=== PATIENT | female | born 1980 | race Hispanic/Latino ===

== ENCOUNTER 2022-07-22 11:22 | Emergency (ER) | payer SELFPAY ==
[2022-07-22 12:47] LABS: SARS-CoV-2 NAA Rapid Test Not Detected (NotDetected)
== END 2022-07-22 13:35 | disposition home or self-care (01) ==
LOC: CSHERS 11:22
DX: J11.1 Influenza due to unidentified influenza virus with other respiratory manifestations (principal); Z20.822 Contact with and (suspected) exposure to COVID-19
CPT/HCPCS: 71045

== ENCOUNTER 2022-09-26 17:15 | Emergency (ER) | payer SELFPAY ==
[2022-09-26] MEDS ORDERED: Oxymetazoline HCl 0.05% ( 15 ML ) ONE ×2 (17:35→17:57)
== END 2022-09-26 18:28 | disposition home or self-care (01) ==
LOC: CSHERS 17:15
DX: R04.0 Epistaxis (principal)
CPT/HCPCS: 99283

== ENCOUNTER 2022-09-27 18:50 | Emergency (ER) | payer SELFPAY ==
[2022-09-27] MEDS ORDERED: Bacitracin 1 PK ONE (20:09)
[2022-09-27] MEDS ORDERED: Morphine 4 MG/ML VIAL ONE (20:34)
[2022-09-27] MEDS ORDERED: Ondansetron ODT 4 MG TAB ONE ×2 (20:35→22:34)
[2022-09-27] MEDS ORDERED: Amoxicillin/Potassium Clav 875 MG TAB ONE (20:55)
[2022-09-27 21:18] LABS: #Monocytes 1.2 10x3/uL (0.0-1.1); #Neutrophils 15.1 10x3/uL (1.5-8.4); %Basophils 0.2 % (0.0-2.0); %Eosinophils 0.2 % (0.0-6.0); %Lymphocytes 14.2 % (18.0-47.0); %Monocytes 6.1 % (0.0-10.0); %Neutrophils 78.7 % (40.0-75.0); Mean Corpuscular HGB CONC 31.8 g/dL (32.0-36.0); Mean Platelet Volume 11.2 fl (7.4-10.4); Platelet Count 438 10x3/uL (150-450); Red Blood Cell (RBC) Count 4.07 10x6/uL (3.90-5.03); White Blood Cell (WBC) Count 19.1 10x3/uL (3.5-10.5)
[2022-09-27 21:31] LABS: ALT (SGPT) 8 U/L (8-55); AST (SGOT) 11 U/L (5-34); Albumin 4.4 g/dL (3.5-5.0); Alkaline Phosphatase 68 U/L (40-110); Anion Gap 14 mmol/L (10-20); BUN (Urea Nitrogen) 15 mg/dL (7.0-18.7); Bilirubin, Total 0.4 mg/dL (0.2-1.2); Calc. Creatinine Clearance 0 mL/min (70-130); Calcium 9.1 mg/dL (7.8-10.44); Carbon Dioxide 23 mmol/L (22-29); Chloride 102 mmol/L (98-107); Estimated GFR 106; Globulin 3.2 g/dL (2.4-3.5); Glucose 140 mg/dL (70-105); Potassium 3.8 mmol/L (3.5-5.1); Protein, Total 7.6 g/dL (6.0-8.3); Sodium 135 mmol/L (136-145)
[2022-09-27] MEDS ORDERED: Metoclopramide HCl 10 MG/2 ML VIAL ONE (23:59)
[2022-09-28] MEDS ORDERED: Midazolam HCl 2 mg/2 ml Vial ONE (00:29)
[2022-09-28] MEDS ORDERED: PROPOFOL 20 ML ONE (00:29)
[2022-09-28] MEDS ORDERED: Fentanyl 100 MCG/2 ML VIAL ONE (00:29)
[2022-09-28] MEDS ORDERED: Lidocaine 1% PF 5 ML VIAL ONE (00:31)
[2022-09-28] MEDS ORDERED: Ondansetron PF 4 MG/2 ML Vial ONE (00:31)
[2022-09-28] MEDS ORDERED: Dexamethasone 20 MG/5 ML VIAL ONE (00:31)
[2022-09-28 00:39] LABS: Hemoglobin 10.2 g/dL (12.0-15.5); MDiff Complete? YES; Mean Corpuscular HGB CONC 32.2 g/dL (32.0-36.0); Mean Corpuscular Hemoglobin 27.5 pg (27.0-33.0); Mean Corpuscular Volume 85.4 fl (81.6-98.3); Mean Platelet Volume 11.5 fl (7.4-10.4); Platelet Count 468 10x3/uL (150-450); RBC Distribution Width 13.9 % (11.5-14.5); Red Blood Cell (RBC) Count 3.71 10x6/uL (3.90-5.03)
[2022-09-28] MEDS ORDERED: Oxymetazoline HCl 0.05% ( 15 ML ) ONE (00:59)
[2022-09-28 01:01] LABS: Lymphocytes 18 % (21-51); Monocytes 5 % (0-10); Neutrophil 77 % (42-75); Platelet Morphology Comment Appears Increased
[2022-09-28] MEDS ORDERED: Rocuronium Bromide 10 MG/ML (10ML VIAL) ONE (01:18)
[2022-09-28] MEDS ORDERED: Glycopyrrolate 0.2 MG/ML 5 ML SYRINGE ONE (01:41)
== END 2022-09-28 01:07 | disposition admitted as inpatient to this hospital (09) ==
LOC: CSHERS 18:50
DX: R04.0 Epistaxis (principal)
CPT/HCPCS: 86850; 86900; 86901; 96365; 96372; J1100; J2250; J2270; J2405; J2704; J2765; J3010; Q0162